=== PATIENT | female | born 1990 | race Hispanic/Latino ===

== ENCOUNTER 2019-03-19 09:00 | Emergency (ER) | payer SELFPAY ==
[~2019-03-19] VITALS: Ht 162.6 cm; Wt 81.8 kg
[2019-03-19] MEDS ORDERED: BACTRIM DS1 TAB PO (11:05)
[2019-03-19] MEDS ORDERED: LORTAB 1010 MG PO (11:05)
[2019-03-19] MEDS ORDERED: CEPHALEXIN500 MG PO (11:05)
[2019-03-19 11:33] VITALS: BP 149/66
== END 2019-03-19 11:33 | disposition home or self-care (01) | DRG 603 ==
LOC: ED 09:00
PROC: 0H97XZX Drainage of Abdomen Skin, External Approach, Diagnostic (ICD-10-PCS; principal; 2019-03-19)
DX: L02.211 Cutaneous abscess of abdominal wall (principal)

== ENCOUNTER 2019-03-20 09:29 | Emergency (ER) | payer SELFPAY ==
[~2019-03-20] VITALS: Ht 162.6 cm; Wt 75.0 kg
[~2019-03-20 09:29] MED LIST: BACTRIM DS1 TAB PO; CEPHALEXIN500 MG PO; LORTAB 1010 MG PO
[2019-03-20 10:39] VITALS: BP 110/77
== END 2019-03-20 10:39 | disposition home or self-care (01) | DRG 951 ==
LOC: ED 09:29
DX: Z48.00 Encounter for change or removal of nonsurgical wound dressing (principal); L02.416 Cutaneous abscess of left lower limb

== ENCOUNTER 2019-03-22 11:59 | Emergency (ER) | payer SELFPAY ==
[~2019-03-22] VITALS: Ht 162.6 cm; Wt 81.0 kg
[2019-03-22 14:40] VITALS: BP 132/85
== END 2019-03-22 14:40 | disposition home or self-care (01) | DRG 949 ==
LOC: ED 11:59
DX: S81.802D Unspecified open wound, left lower leg, subsequent encounter (principal); L02.416 Cutaneous abscess of left lower limb